=== PATIENT | female | born 1980 | race Caucasian/White ===

== ENCOUNTER 2017-05-15 09:22 | Emergency (ER) | payer MEDICAID ==
[2016-05-02 08:43] VITALS: Ht 167.6 cm; Wt 95.3 kg
[~2017-05-15] VITALS: Ht 167.6 cm; Wt 95.3 kg
[~2017-05-15 09:22] MED LIST: AA/A14DR7 OT; AMO500 PO; AZIT-18 PO; CODE118S5 PO; CYC10 PO; ESOM20CA31 PO; HYDR-4309 PO; KET10 PO; LOR5 PO; LOR5/325 PO; MULT1CAP59 PO; NAPR220C12 PO; NEOM10SO23 OT; NO MEDS; OMEP-125 PO; ONDA4TAB PO; TRA50 PO; [UNRECOGNIZED DRUG - OTHER]; [UNRECOGNIZED DRUG - OTHER] INFIL
--- NOTE | 2017-05-15 09:34 | ER Report ---
History and Physical Time Seen By MD: 09:32 HPI/ROS CHIEF COMPLAINT: cough HISTORY OF PRESENT ILLNESS: Patient is 37-year-old female who presents to department approximately 24 hours after developing flulike symptoms including headache bodyaches fatigue scratchy sore throat. And subjective fevers she is also having a nonproductive cough and complaint of chest discomfort and tightness with cough. Patient has no history of asthma or COPD. She has no other significant contributory past medical history. REVIEW OF SYSTEMS: Constitutional: Subjective fevers no chills Eyes: No discharge. ENT: Sore throat Cardiovascular: Chest wall pain no palpitations Respiratory: Dry cough Gastrointestinal: No abdominal pain, no vomiting. Genitourinary: No hematuria. Musculoskeletal: No back pain. Skin: No rashes. Neurological: Generalized headache Allergies: Coded Allergies: Penicillins (Verified Allergy, Severe, UNKNOWN, 06/03/16) Home Meds Discontinued Reported Medications Multivitamin (MULTIVITAMINS) 1 Each Capsule, 1 EACH PO DAILY, CAPSULE 08/15/16 Discontinued Scripts Hydrocodone Bit/Acetaminophen (HYDROCODON-ACETAMINOPHEN 5-325) 1 Each Tablet, 1 EACH PO Q4-6H Y for PAIN, #30 TAB Prov:MAURICIO GONZALEZ MD 09/03/16 Ketorolac Tromethamine (KETOROLAC TROMETHAMINE) 10 Mg Tab, 10 MG PO Q6H, #20 TAB Prov:MAURICIO GONZALEZ MD 09/03/16 Past Medical/Surgical History No significant past medical history, past surgical history for hysterectomy and cholecystectomy. Hx Smoking: Yes (1 PPD) Smoking Status: Current: Every Day Smoker Exposure to Second Hand Smoke?: Yes Hx Substance Use Disorder: No Hx Alcohol Use: No Constitutional Vital Sign - Last 24 Hours 05/15/17 05/15/17 05/15/17 05/15/17 09:28 09:29 09:37 09:45 Temp 98.1 Pulse 82 72 73 Resp 24 18 B/P (MAP) 127/90 127/90 (102) Pulse Ox 95 96 O2 Delivery Room Air 05/15/17 05/15/17 05/15/17 05/15/17 09:45 09:50 09:52 10:00 Pulse 67 73 Resp 18 B/P (MAP) 112/87 (95) Pulse Ox 94 94 O2 Delivery Room Air 2/1/18 2/1/18 10:22 10:30 Pulse 71 B/P (MAP) 99/53 (68) Pulse Ox 96 Physical Exam General/Constitutional: Patient is awake, alert, nontoxic and in no acute respiratory distress. Head: Normocephalic and atraumatic. Eyes: Conjunctival clear, Pupils are equal and reactive to light. Extraocular muscles are intact and symmetrical. Sclera are clear and anicteric. Ears:External canals are clear. Tympanic membranes are clear with normal landmarks and light reflex. Nares: No rhinorrhea or bleeding. Turbinates are pink and moist. Oropharyngeal: Mucous membranes are moist. There is no pharyngeal erythema or exudate. Neck: Supple, no adenopathy. Cardiovascular: Heart is regular rate and rhythm without audible murmurs, rubs or gallops. Pulmonary: Lungs are noted for diffuse wheeze with cough. No consolidation or rhonchi noted Abdomen: Soft, nontender, no guarding or peritoneal signs. Extremities: No gross deformities, No peripheral cyanosis. Able to move all 4 extremities. Neuro: Alert and oriented X3, Skin: No rashes, skin is warm dry and well perfused. Medical Decision Making Data Points Laboratory Hematology Test 05/15/17 09:37 Influenza Virus Type A (PCR) Negative (NEGATIVE) Influenza Virus Type B (PCR) Negative (NEGATIVE) Chemistry Test 05/15/17 09:37 Influenza Virus Type A (PCR) Negative (NEGATIVE) Influenza Virus Type B (PCR) Negative (NEGATIVE) EKG/Imaging Imaging FACILITY: [facility] PATIENT NAME: Queenie Chase : 1980 MR: [id number] V: [id number] EXAM DATE: ORDERING PHYSICIAN: SRINATH DEAN TECHNOLOGIST: Location: [facility] Patient: Queenie Chase : 1980 Visit/Account:[id number] Date of Sevice: 05/15/2017 Exam type: CHEST PA AND LAT History: cough Comparison: January 17, 2017. Findings: The lungs are free of acute effusions, infiltrates or edema. Cardiac silhouette is normal in size. The trachea is midline. Visualized bones are grossly unremarkable. IMPRESSION: 1. No acute cardiopulmonary process seen Report Dictated By: Karolyn Kern MD at 05/15/2017 10:43 AM Report E-Signed By: Karolyn Kern MD at 05/15/2017 10:46 AM WSN:TA ED Course/Re-evaluation ED Course 05/15/2017 9:57:38 am plan at this time will be to swab for influenza we'll also obtain a chest x-ray given a DuoNeb treatment and ibuprofen. 05/15/2017 11:11:56 am influenza screen is negative however clinically I believe the patient does have the virus. The test does lack sensitivity so it is possible that it is a false negative. The patient's symptoms very concerning for influenza and she is within the window of treatment of Tamiflu. Was going to the patient. She agrees with treatment. I will also prescribe Mucinex for cough will also write a work note for the next 3 days Decision to Disposition Date: May 15, 2017 Decision to Disposition Time: 11:09 Depart Departure Latest Vital Signs Vital Signs Date Time Temp Pulse Resp B/P (MAP) Pulse Ox O2 Delivery O2 Flow Rate FiO2 05/15/17 10:30 99/53 (68) 05/15/17 10:22 71 96 05/15/17 09:50 18 05/15/17 09:45 Room Air 05/15/17 09:28 98.1 Impression: Primary Impression: Influenza Condition: Improved Disposition: HOME OR SELF-CARE Referrals: VEDA LINDQUIST (PCP) New Scripts Guaifenesin/Pseudoephedrne Hcl (MUCINEX D ER TABLET) 1 Each Tab.er.12h 1 EACH PO Q12H for cough, #20 TAB 0 Refills Prov: SRINATH DEAN MD 05/15/17 Oseltamivir Phosphate (TAMIFLU) 75 Mg Cap 75 MG PO BID, #10 CAP 0 Refills Prov: SRINATH DEAN MD 05/15/17 Departure Forms: ER Transition Record, Medications Reconciliation, Off Work/ School Form, School or Work Release?: Work Number of days to be released: 3 Patient Portal Information Patient Instructions: Influenza (DC) SRINATH DEAN MD May 15, 2017 09:33
[2017-05-15] MEDS ORDERED: ALBUTEROL/IPRATROPIUM 3 ML NEB NEB ONE (09:40)
[2017-05-15] MEDS ORDERED: IBUPROFEN 800 MG TAB PO ONE (09:40)
--- NOTE | 2017-05-15 10:51 | RADIOLOGY IMAGING REPORT ---
FACILITY: [facility] PATIENT NAME: Queenie Chase : 1980 MR: [id number] V: [id number] EXAM DATE: ORDERING PHYSICIAN: SRINATH DEAN TECHNOLOGIST: Location: [facility] [place] Patient: Queenie Chase : 1980 Visit/Account:[id number] Date of Sevice: 05/15/2017 Exam type: CHEST PA AND LAT History: cough Comparison: January 17, 2017. Findings: The lungs are free of acute effusions, infiltrates or edema. Cardiac silhouette is normal in size. The trachea is midline. Visualized bones are grossly unremarkable. IMPRESSION: 1. No acute cardiopulmonary process seen Report Dictated By: Karolyn Kern MD at 05/15/2017 10:43 AM Report E-Signed By: Karolyn Kern MD at 05/15/2017 10:46 AM WSN:[id number]
[2017-05-15] MEDS ORDERED: ALBUTEROL SULFATE 90 MCG/ACT 8.5 GM HNH INH ONE (11:10)
[2017-05-15] MEDS ORDERED: GUAI-545 PO (11:12)
[2017-05-15] MEDS ORDERED: OSE75 PO (11:12)
[2017-05-15 11:20] VITALS: BP 112/93
== END 2017-05-15 11:15 | disposition home or self-care (01) ==
LOC: ER 09:36
DX: J11.1 Influenza due to unidentified influenza virus with other respiratory manifestations (principal)
CPT/HCPCS: 71046; 87502; 94640; 99283; J7620

== ENCOUNTER → 2017-10-08 | Outpatient (CLI) | payer MEDICAID ==
[2016-05-02 08:43] VITALS: BMI 33.4
[~2017-10-08] MED LIST changes: +GUAI-545 PO; +ONDA4TAB97 PO; +OSE75 PO; +OXYC-865 PO
--- NOTE | 2017-10-09 11:56 | RADIOLOGY IMAGING REPORT ---
FACILITY: [facility] [place] PATIENT NAME: ELIDIA OLIVER : [id number] MR: [id number] V: [id number] EXAM DATE: [id number] ORDERING PHYSICIAN: VEDA LINDQUIST TECHNOLOGIST: Donald Parham RDMS, [facility] PROCEDURE:US LEFT BREAST COMPLETE COMPARISON:Prior breast MR 01/01/17, Left breast Ultrasound 12/25/16, Prior diagnostic mammogram 12/25/16. The patient also complains of Left breast pain in the upper portion of the Left breast. INDICATIONS:6 mo f/u FINDINGS: The previously noted ovoid hypoechoic nodular area in the 3 o'clock position of the Left breast 4cm from the nipple is no longer seen. No sonographic abnormality of the Left breast was demonstrated. Clinical follow-up recommended for patient's Left breast pain. DIAGNOSTIC CATEGORY 1--NEGATIVE. RECOMMENDATIONS: CLINICAL EVALUATION. IMPRESSION: BIRADS 1: Negative. No significant abnormality of the Left breast is seen. The previously noted hypoechoic nodule in the 3 o'clock position is no longer identified. Clinical follow-up recommend for patient's Left breast pain. Dictated by: Karolyn Kern M.D. on 10/08/2017 at 16:38 Transcribed by: KENDRA on 10/09/2017 at 9:06 Approved by: Karolyn Kern M.D. on 10/09/2017 at 11:55 [facility]
== END ==
LOC: MAMO 01:27
PROVIDERS: ATTEND Nurse Practitioner Family
DX: N64.4 Mastodynia (principal); Z85.41 Personal history of malignant neoplasm of cervix uteri; Z80.3 Family history of malignant neoplasm of breast

== ENCOUNTER 2017-10-10 09:10 | Emergency (ER) | payer MEDICAID ==
[2016-05-02 08:43] VITALS: Wt 95.3 kg
[~2017-10-10 09:10] MED LIST changes: -ONDA4TAB97 PO; -OXYC-865 PO
--- NOTE | 2017-10-10 09:14 | ER Report ---
History and Physical Time Seen By MD: 09:13 HPI/ROS CHIEF COMPLAINT: Headache and back pain HISTORY OF PRESENT ILLNESS: Patient is a 37-year-old female who states she's had 2 weeks of headache along with backache. She denies any dysuria. She states that the symptoms have been fairly persistent for the past 2 weeks but she started having vomiting of bile this morning which is what prompted her to come to the emergency department. She denies any fevers or chills. She denies chest pain or shortness of breath. She denies any abdominal pain but does report some nausea and vomiting. She denies any diarrhea. Patient had her gallbladder removed as well as a total hysterectomy. She is recently being followed for a "lump" in her left breast which was uncomfortable. She had an ultrasound as a follow-up which was unremarkable and yesterday she was here for a mammography, she however was not seen for this complaint at that time. REVIEW OF SYSTEMS: Constitutional: No fever, no chills. Eyes: No discharge. ENT: No sore throat. Cardiovascular: No chest pain, no palpitations. Respiratory: No cough, no shortness of breath. Gastrointestinal: No abdominal pain, no vomiting. Genitourinary: No hematuria. Musculoskeletal: Back pain, Skin: No rashes. Neurological: Headache Allergies: Coded Allergies: Penicillins (Verified Allergy, Severe, UNKNOWN, 10/10/17) Home Meds Discontinued Scripts Guaifenesin/Pseudoephedrne Hcl (MUCINEX D ER TABLET) 1 Each Tab.er.12h, 1 EACH PO Q12H for cough, #20 TAB 0 Refills Prov:SRINATH DEAN MD 05/15/17 Oseltamivir Phosphate (TAMIFLU) 75 Mg Cap, 75 MG PO BID, #10 CAP 0 Refills Prov:SRINATH DEAN MD 05/15/17 Past Medical/Surgical History No chronic medical problems Hx Smoking: Yes (1 PPD) Smoking Status: Current: Every Day Smoker Exposure to Second Hand Smoke?: Yes Hx Substance Use Disorder: No Hx Alcohol Use: No Constitutional Vital Sign - Last 24 Hours 10/10/17 10/10/17 10/10/17 10/10/17 09:16 09:17 09:25 09:30 Temp 97.9 Pulse 70 59 Resp 18 B/P (MAP) 132/86 132/88 (103) 112/72 (85) Pulse Ox 97 97 O2 Delivery Room Air 10/10/17 10/10/17 10/10/17 10/10/17 09:40 09:45 09:55 10:00 Pulse 62 ??? B/P (MAP) 117/86 (96) ???/??? (1665) Pulse Ox 97 10/10/17 10/10/17 10:10 10:15 Pulse ??? B/P (MAP) 114/76 (89) Physical Exam General Appearance: The patient is alert, has no immediate need for airway protection and no signs of toxicity. Eyes: Pupils equal and round no pallor or injection. ENT, Mouth: Oropharynx shows no erythema aches membranes are dry; TMs and canals are clear bilaterally. Neck is negative for Kernig or Brudzinski sign Respiratory: There are no retractions, lungs are clear to auscultation. Cardiovascular: Regular rate and rhythm. [ ] Gastrointestinal: Abdomen is soft and non tender, no masses, bowel sounds normal. Neurological: GCS 15. Normal speech pattern normal gross motor and sensory exam Skin: Warm and dry, no rashes. Musculoskeletal: Extremities are nontender, nonswollen and have full range of motion. Medical Decision Making Data Points Result Diagram: 10/10/1731 10/10/1731 Laboratory Hematology Test 10/10/17 09:19 10/10/17 09:31 Urine Color Straw Urine Clarity Clear Urine pH 7.0 pH (4.8-9.5) Urine Specific Barnett 1.005 Urine Protein Negative mg/dL (NEGATIVE) Urine Glucose (UA) Negative mg/dL (NEGATIVE) Urine Ketones Negative mg/dL (NEGATIVE) Urine Blood Negative (NEGATIVE) Urine Nitrite Negative (NEGATIVE) Urine Bilirubin Negative (NEGATIVE) Urine Urobilinogen Negative mg/dL (0.2-1.9) Urine Leukocyte Esterase Negative (NEGATIVE) Urine RBC <1 /HPF (0-2/HPF) Urine WBC <1 /HPF (0-5/HPF) Urine Squamous Epithelial Cells None /LPF (</=FEW) Urine Bacteria Negative /HPF (NONE-FEW) Urine Mucus None /HPF (NONE-FEW) Red Blood Count 4.57 M/uL (4.17-5.56) Mean Corpuscular Volume 88.7 fL (80.0-96.0) Mean Corpuscular Hemoglobin 31.0 pg (26.0-33.0) Mean Corpuscular Hemoglobin Concent 34.9 g/dL (32.0-36.0) Red Cell Distribution Width 12.8 % (11.5-14.5) Mean Platelet Volume 9.4 fL (7.2-11.1) Neutrophils (%) (Auto) 57.1 % (39.4-72.5) Lymphocytes (%) (Auto) 33.6 % (17.6-49.6) Monocytes (%) (Auto) 7.3 % (4.1-12.4) Eosinophils (%) (Auto) 0.9 % (0.4-6.7) Basophils (%) (Auto) 1.1 % (0.3-1.4) Nucleated RBC Relative Count (auto) 0.2 /100WBC Neutrophils # (Auto) 4.9 K/uL (2.0-7.4) Lymphocytes # (Auto) 2.9 K/uL (1.3-3.6) Monocytes # (Auto) 0.6 K/uL (0.3-1.0) Eosinophils # (Auto) 0.1 K/uL (0.0-0.5) Basophils # (Auto) 0.1 K/uL (0.0-0.1) Nucleated RBC Absolute Count (auto) 0.01 K/uL Sodium Level 142 mmol/L (137-145) Potassium Level 3.6 mmol/L (3.5-5.0) Chloride Level 105 mmol/L (98-107) Carbon Dioxide Level 28 mmol/L (22-31) Blood Urea Nitrogen 13 mg/dl (7-18) Creatinine 0.70 mg/dl (0.52-1.04) Glomerular Filtration Rate Calc > 60.0 Random Glucose 100 mg/dl (75-110) Calcium Level 8.7 mg/dl (8.4-10.2) Total Bilirubin 0.4 mg/dl (0.2-1.3) Aspartate Amino Transf (AST/SGOT) 22 U/L (0-35) Alanine Aminotransferase (ALT/SGPT) 26 U/L (0-56) Alkaline Phosphatase 50 U/L (0-126) Total Protein 6.6 g/dl (6.3-8.2) Albumin 3.7 g/dl (3.5-5.0) Lipase 45 U/L (23-300) Chemistry Test 10/10/17 09:19 10/10/17 09:31 Urine Color Straw Urine Clarity Clear Urine pH 7.0 pH (4.8-9.5) Urine Specific Barnett 1.005 Urine Protein Negative mg/dL (NEGATIVE) Urine Glucose (UA) Negative mg/dL (NEGATIVE) Urine Ketones Negative mg/dL (NEGATIVE) Urine Blood Negative (NEGATIVE) Urine Nitrite Negative (NEGATIVE) Urine Bilirubin Negative (NEGATIVE) Urine Urobilinogen Negative mg/dL (0.2-1.9) Urine Leukocyte Esterase Negative (NEGATIVE) Urine RBC <1 /HPF (0-2/HPF) Urine WBC <1 /HPF (0-5/HPF) Urine Squamous Epithelial Cells None /LPF (</=FEW) Urine Bacteria Negative /HPF (NONE-FEW) Urine Mucus None /HPF (NONE-FEW) White Blood Count 8.6 k/uL (4.5-11.0) Red Blood Count 4.57 M/uL (4.17-5.56) Hemoglobin 14.1 g/dL (12.0-16.0) Hematocrit 40.5 % (34.0-47.0) Mean Corpuscular Volume 88.7 fL (80.0-96.0) Mean Corpuscular Hemoglobin 31.0 pg (26.0-33.0) Mean Corpuscular Hemoglobin Concent 34.9 g/dL (32.0-36.0) Red Cell Distribution Width 12.8 % (11.5-14.5) Platelet Count 248 K/uL (150-450) Mean Platelet Volume 9.4 fL (7.2-11.1) Neutrophils (%) (Auto) 57.1 % (39.4-72.5) Lymphocytes (%) (Auto) 33.6 % (17.6-49.6) Monocytes (%) (Auto) 7.3 % (4.1-12.4) Eosinophils (%) (Auto) 0.9 % (0.4-6.7) Basophils (%) (Auto) 1.1 % (0.3-1.4) Nucleated RBC Relative Count (auto) 0.2 /100WBC Neutrophils # (Auto) 4.9 K/uL (2.0-7.4) Lymphocytes # (Auto) 2.9 K/uL (1.3-3.6) Monocytes # (Auto) 0.6 K/uL (0.3-1.0) Eosinophils # (Auto) 0.1 K/uL (0.0-0.5) Basophils # (Auto) 0.1 K/uL (0.0-0.1) Nucleated RBC Absolute Count (auto) 0.01 K/uL Glomerular Filtration Rate Calc > 60.0 Calcium Level 8.7 mg/dl (8.4-10.2) Total Bilirubin 0.4 mg/dl (0.2-1.3) Aspartate Amino Transf (AST/SGOT) 22 U/L (0-35) Alanine Aminotransferase (ALT/SGPT) 26 U/L (0-56) Alkaline Phosphatase 50 U/L (0-126) Total Protein 6.6 g/dl (6.3-8.2) Albumin 3.7 g/dl (3.5-5.0) Lipase 45 U/L (23-300) Urinalysis Test 10/10/17 09:19 Urine Color Straw Urine Clarity Clear Urine pH 7.0 pH (4.8-9.5) Urine Specific Barnett 1.005 Urine Protein Negative mg/dL (NEGATIVE) Urine Glucose (UA) Negative mg/dL (NEGATIVE) Urine Ketones Negative mg/dL (NEGATIVE) Urine Blood Negative (NEGATIVE) Urine Nitrite Negative (NEGATIVE) Urine Bilirubin Negative (NEGATIVE) Urine Urobilinogen Negative mg/dL (0.2-1.9) Urine Leukocyte Esterase Negative (NEGATIVE) Urine RBC <1 /HPF (0-2/HPF) Urine WBC <1 /HPF (0-5/HPF) Urine Squamous Epithelial Cells None /LPF (</=FEW) Urine Bacteria Negative /HPF (NONE-FEW) Urine Mucus None /HPF (NONE-FEW) ED Course/Re-evaluation ED Course 10/10/2017 9:41:54 am plan at this time will be pain medication with Toradol along with antiemetics with Reglan and Benadryl. We'll check CBC CMP lipase urinalysis and urine culture. We'll also perform CT of the head. Patient is complaining of some back pain and some neck discomfort however she has no true meningeal signs on exam. Re-evaluation 10/10/2017 10:27:47 am patient feeling improved after Toradol, Reglan and Benadryl. Blood work and urinalysis are unremarkable. Awaiting results of CT scan. Decision to Disposition Date: Oct 10, 2017 Decision to Disposition Time: 10:40 Depart Departure Latest Vital Signs Vital Signs Date Time Temp Pulse Resp B/P (MAP) Pulse Ox O2 Delivery O2 Flow Rate FiO2 10/10/17 10:15 114/76 (89) 10/10/17 10:10 ??? 10/10/17 09:40 97 10/10/17 09:16 97.9 18 Room Air Impression: Primary Impression: Head ache Condition: Improved Disposition: HOME OR SELF-CARE Referrals: VEDA LINDQUIST (PCP) 2 Days if symptoms persist New Scripts Ondansetron Hcl (ZOFRAN) 4 Mg Tablet 4 MG PO Q8H for Nausea, #15 TAB 0 Refills Prov: SRINATH DEAN MD 10/10/17 Oxycodone Hcl/Acetaminophen (PERCOCET 5-325 MG TABLET) 1 Each Tablet 1 EACH PO Q4-6H for PAIN, #12 TAB 0 Refills Prov: SRINATH DEAN MD 10/10/17 Patient Instructions: Acute Headache (ED) Problem Qualifiers Primary Impression: Head ache Headache type: tension-type Headache chronicity pattern: acute headache Intractability: intractable Qualified Codes: G44.201 - Tension-type headache , unspecified, intractable SRINATH DEAN MD Oct 10, 2017 09:14
[2017-10-10] MEDS ORDERED: NS(*) 0.9% 1000 ML BAG 1,000 ML IV ONE (09:34)
[2017-10-10] MEDS ORDERED: diphenhydrAMINE 50 MG/ML VIAL IVP ONE (09:35)
[2017-10-10] MEDS ORDERED: KETOROLAC 30 MG/ML VIAL IVP ONE (09:35)
[2017-10-10] MEDS ORDERED: METOCLOPRAMIDE 10 MG/2 ML SDV IVP ONE (09:35)
[2017-10-10 09:45] LABS: PLATELET COUNT, AUTOMATED 248 K/uL (150-450)
--- NOTE | 2017-10-10 10:27 | RADIOLOGY IMAGING REPORT ---
FACILITY: [facility] - [place] PATIENT NAME: Queenie Chase : 1980 MR: [id number] V: [id number] EXAM DATE: ORDERING PHYSICIAN: SRINATH DEAN TECHNOLOGIST: Location: [facility] [place] Patient: Queenie Chase : 1980 Visit/Account:[id number] Date of Sevice: 10/10/2017 EXAMINATION: CT Head without intravenous contrast HISTORY: Headache. TECHNIQUE: Axial images were obtained from the skull base to the vertex without intravenous contrast . Sagittal and coronal reformatted images are also submitted. One of the following dose optimization techniques was utilized in the performance of this exam: Autom ated exposure control; adjustment of the mA and/or kV according to the patient's size; or use of an i terative reconstruction technique. Specific details can be referenced in the facility's radiology C T exam operational policy. COMPARISON: 05/01/2016. FINDINGS: Brain volume: Normal. Ventricles: Negative. Acute ischemic changes: None. Hemorrhage: None. Masses / edema: None. Leonard-white: Negative. White matter: Negative. Vessels: Negative. Extra-axial: Negative. Calvarium / skull base: Negative. Visualized sinuses / orbits: Negative. IMPRESSION: Normal noncontrast head CT. Report Dictated By: Rick Hudson MD at 10/10/2017 10:19 AM Report E-Signed By: Rick Hudson MD at 10/10/2017 10:22 AM WSN:[email or web address]
[2017-10-10] MEDS ORDERED: OXYC-865 PO (10:39)
[2017-10-10] MEDS ORDERED: ONDA4TAB97 PO (10:39)
[2017-10-10 10:43] VITALS: BP 124/79
== END 2017-10-10 10:43 | disposition home or self-care (01) ==
LOC: ER 09:21
DX: G44.201 Tension-type headache, unspecified, intractable (principal)
CPT/HCPCS: 70450; 81001; 83690; 85025; 87088; 96361; 96374; 96375; 99284; J1200; J1885; J2765; J7030; 82040; 82247; 82310; 82374; 82435; 82565; 82947; 84075; 84132; 84155; 84295; 84450; 84460; 84520

== ENCOUNTER → 2017-11-04 | Outpatient (CLI) | payer MEDICAID ==
[2016-05-02 08:43] VITALS: BMI 33.4
[~2017-11-04] MED LIST changes: +ONDA4TAB97 PO; +OXYC-865 PO
== END ==
LOC: LAB 15:51
PROVIDERS: ATTEND Nurse Practitioner Family
DX: M79.1 Myalgia (principal)
CPT/HCPCS: 36415; 85651; 86038; 86430

== ENCOUNTER 2018-01-22 10:51 | Emergency (ER) | payer MEDICAID ==
[2016-05-02 08:43] VITALS: Wt 93.0 kg
--- NOTE | 2018-01-22 11:05 | ER Report ---
History and Physical Time Seen By MD: 11:04 Hx. of Stated Complaint: PT C/O SUDDEN ONSET DIZZINESS, L ARM PAIN, NAUSEA. TEARFUL DURING TRIAGE. HPI/ROS CHIEF COMPLAINT: Chest pain and dizziness HISTORY OF PRESENT ILLNESS: This is a 37-year-old female who presents to the emergency department with her for dizziness, chest pain, leg pain. Patient states that just prior to arrival the patient was sitting in her truck and developed leg pains bilaterally, the majority the pain in the right, pain radiated up from her leg across her abdomen into her left shoulder and down her left arm, became anxious, became slightly lightheaded, patient states that she has never had anything like this before. Patient states that she sort of remembers them driving to the emergency department, "fell asleep for a few seconds". Slight nausea, no vomiting. No dyspnea. No fevers or chills. Patient is tearful, states that the pain in her legs has almost resolved however there is some residual pain in the right leg. She is actively moving the right leg. REVIEW OF SYSTEMS: Constitutional: No fever, no chills. Eyes: No discharge. ENT: No sore throat. Cardiovascular: As above. Respiratory: No cough, no shortness of breath. Gastrointestinal: No abdominal pain, no vomiting. Genitourinary: No hematuria. Musculoskeletal: As above. Skin: No rashes. Neurological: As above. Allergies: Coded Allergies: Penicillins (Verified Allergy, Severe, UNKNOWN, 10/10/17) Home Meds Active Scripts Promethazine Hcl (PROMETHAZINE HCL) 25 Mg Tablet, 25 MG PO Q8H, #10 TAB 0 Refills Prov:NAYELI FELDMAN [facility] 01/22/18 Meclizine Hcl (MECLIZINE HCL) 25 Mg Tablet, 25 MG PO BID, #10 TAB 0 Refills Prov:NAYELI FELDMAN [facility] 01/22/18 Ondansetron Hcl (ZOFRAN) 4 Mg Tablet, 4 MG PO Q8H for Nausea, #15 TAB 0 Refills Prov:SRINATH DEAN MD 10/10/17 Oxycodone Hcl/Acetaminophen (PERCOCET 5-325 MG TABLET) 1 Each Tablet, 1 EACH PO Q4-6H for PAIN, #12 TAB 0 Refills Prov:SRINATH DEAN MD 10/10/17 Past Medical/Surgical History Patient has a past medical and surgical history of meningitis, headaches, 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 Reviewed Nurses Notes: Yes Hx Smoking: Yes (1 PPD) Smoking Status: Current: Every Day Smoker Exposure to Second Hand Smoke?: Yes Hx Substance Use Disorder: No Hx Alcohol Use: No Constitutional Vital Sign - Last 24 Hours 01/22/18 01/22/18 01/22/18 01/22/18 10:51 10:58 11:06 11:10 Temp 98.1 Pulse ??? 73 ??? Resp 16 B/P (MAP) 126/89 126/89 (101) Pulse Ox 96 O2 Delivery Room Air 01/22/18 01/22/18 01/22/18 01/22/18 11:21 11:30 11:36 11:51 Pulse 71 66 59 Resp 26 20 9 B/P (MAP) 110/81 (91) Pulse Ox 95 96 97 01/22/18 01/22/18 01/22/18 01/22/18 12:00 12:06 12:21 12:30 Pulse 58 55 Resp 15 13 B/P (MAP) 117/73 (88) 115/69 (84) Pulse Ox 96 96 01/22/18 01/22/18 01/22/18 01/22/18 12:36 12:41 12:56 13:00 Pulse 66 75 78 Resp 23 34 9 B/P (MAP) 122/79 (93) Pulse Ox 97 95 91 Physical Exam General Appearance: The patient is alert, has no immediate need for airway protection and no signs of toxicity. Eyes: Pupils equal and round no pallor or injection. ENT, Mouth: Mucous membranes are moist. Respiratory: There are no retractions, lungs are clear to auscultation. Cardiovascular: Regular rate and rhythm, no murmurs, clicks or rubs. Gastrointestinal: Abdomen is soft and non tender, no masses, bowel sounds normal. Neurological: Alert and oriented 4. Moving all extremities. Following all commands. No focal neuro deficits. Skin: Warm and dry, no rashes. Musculoskeletal: Neck is supple non tender. Extremities are nontender, nonswollen and have full range of motion. [ ] DIFFERENTIAL DIAGNOSIS: After history and physical exam differential diagnosis was considered for chest pain including but not limited to myocardial ischemia, pericarditis pulmonary embolus, chest wall pain, pleural inflammation and pulmonary infectious causes. Medical Decision Making Data Points Result Diagram: 01/22/18 1155 01/22/18 1155 Laboratory Hematology Test 01/22/18 11:55 Red Blood Count 4.29 M/uL (4.17-5.56) Mean Corpuscular Volume 90.5 fL (80.0-96.0) Mean Corpuscular Hemoglobin 31.1 pg (26.0-33.0) Mean Corpuscular Hemoglobin Concent 34.4 g/dL (32.0-36.0) Red Cell Distribution Width 13.1 % (11.5-14.5) Mean Platelet Volume 9.4 fL (7.2-11.1) Neutrophils (%) (Auto) 46.5 % (39.4-72.5) Lymphocytes (%) (Auto) 44.8 % (17.6-49.6) Monocytes (%) (Auto) 6.8 % (4.1-12.4) Eosinophils (%) (Auto) 0.8 % (0.4-6.7) Basophils (%) (Auto) 1.1 % (0.3-1.4) Nucleated RBC Relative Count (auto) 0.0 /100WBC Neutrophils # (Auto) 3.1 K/uL (2.0-7.4) Lymphocytes # (Auto) 3.0 K/uL (1.3-3.6) Monocytes # (Auto) 0.4 K/uL (0.3-1.0) Eosinophils # (Auto) 0.1 K/uL (0.0-0.5) Basophils # (Auto) 0.1 K/uL (0.0-0.1) Nucleated RBC Absolute Count (auto) 0.00 K/uL Peripheral Blood Smear No Y/N Sodium Level 138 mmol/L (137-145) Potassium Level 3.6 mmol/L (3.5-5.0) Chloride Level 106 mmol/L (98-107) Carbon Dioxide Level 25 mmol/L (22-31) Blood Urea Nitrogen 12 mg/dl (7-18) Creatinine 0.70 mg/dl (0.52-1.04) Glomerular Filtration Rate Calc > 60.0 Random Glucose 98 mg/dl (75-110) Calcium Level 8.6 mg/dl (8.4-10.2) Total Bilirubin 0.4 mg/dl (0.2-1.3) Aspartate Amino Transf (AST/SGOT) 23 U/L (0-35) Alanine Aminotransferase (ALT/SGPT) 29 U/L (0-56) Alkaline Phosphatase 43 U/L (0-126) Troponin I < 0.012 ng/ml Total Protein 6.6 g/dl (6.3-8.2) Albumin 3.9 g/dl (3.5-5.0) Human Chorionic Gonadotropin, Qual Negative (NEGATIVE) Chemistry Test 01/22/18 11:55 White Blood Count 6.6 k/uL (4.5-11.0) Red Blood Count 4.29 M/uL (4.17-5.56) Hemoglobin 13.3 g/dL (12.0-16.0) Hematocrit 38.8 % (34.0-47.0) Mean Corpuscular Volume 90.5 fL (80.0-96.0) Mean Corpuscular Hemoglobin 31.1 pg (26.0-33.0) Mean Corpuscular Hemoglobin Concent 34.4 g/dL (32.0-36.0) Red Cell Distribution Width 13.1 % (11.5-14.5) Platelet Count 262 K/uL (150-450) Mean Platelet Volume 9.4 fL (7.2-11.1) Neutrophils (%) (Auto) 46.5 % (39.4-72.5) Lymphocytes (%) (Auto) 44.8 % (17.6-49.6) Monocytes (%) (Auto) 6.8 % (4.1-12.4) Eosinophils (%) (Auto) 0.8 % (0.4-6.7) Basophils (%) (Auto) 1.1 % (0.3-1.4) Nucleated RBC Relative Count (auto) 0.0 /100WBC Neutrophils # (Auto) 3.1 K/uL (2.0-7.4) Lymphocytes # (Auto) 3.0 K/uL (1.3-3.6) Monocytes # (Auto) 0.4 K/uL (0.3-1.0) Eosinophils # (Auto) 0.1 K/uL (0.0-0.5) Basophils # (Auto) 0.1 K/uL (0.0-0.1) Nucleated RBC Absolute Count (auto) 0.00 K/uL Peripheral Blood Smear No Y/N Glomerular Filtration Rate Calc > 60.0 Calcium Level 8.6 mg/dl (8.4-10.2) Total Bilirubin 0.4 mg/dl (0.2-1.3) Aspartate Amino Transf (AST/SGOT) 23 U/L (0-35) Alanine Aminotransferase (ALT/SGPT) 29 U/L (0-56) Alkaline Phosphatase 43 U/L (0-126) Troponin I < 0.012 ng/ml Total Protein 6.6 g/dl (6.3-8.2) Albumin 3.9 g/dl (3.5-5.0) Human Chorionic Gonadotropin, Qual Negative (NEGATIVE) EKG/Imaging EKG Interpretation 12 lead EKG: Time of EKG 11:00 Rhythm: Normal sinus rhythm, ventricular rate 76 bpm. [place]: QTC 481. QRS: normal ST segments: No ST elevation or depression identified. Imaging Location: [facility] Patient: Queenie Chase : 1980 Visit/Account:[id number] Date of Sevice: 01/22/2018 2 VIEWS CHEST INDICATION: Chest Pain COMPARISON: May 15, 2017 FINDINGS: Cardiomediastinal silhouette: Heart size within normal limits. Lungs: There is no focal infiltrate or lobar consolidation. There is no pneumothorax or pleural effusion. Bones and soft tissues: Vertebral body heights are preserved. Presumed cholecystectomy. IMPRESSION: 1. No acute cardiopulmonary process. Report Dictated By: Edgardo Alfonso MD at 01/22/2018 11:56 AM Report E-Signed By: Edgardo Alfonso MD at 01/22/2018 11:57 AM WSN:[id number] ED Course/Re-evaluation Clinical Indication for ER IV: Hydration, IV Access ED Course The patient was admitted to room. A history and physical obtained. Differential diagnoses were considered. An IV was started. A CBC, CMP, troponin were ob tained. A 1 L normal saline bolus was given. 4 mg IV Zofran. 025 mg by mouth meclizine. Patient states her symptoms have improved. I did review the chest x- ray with the patient which was negative. I reviewed the laboratory studies with the patient and her as well as negative EKG. I did tell the patient that this could be secondary to anxiety, patient agreed. I also encouraged patient to increase her water intake as she drinks a lot of sodas, tea and coffee during the day, I did tell her that this could be konstantin to some of the cramps that she is having in her legs. Patient expressed understanding the patient had no other questions or concerns at this time and was discharged home. I did send the patient home with a prescription for Phenergan for nausea as well as meclizine for intermittent dizziness. Patient did have a steady gait while in the emergency department. I also instructed the patient to follow-up with her primary care provider 1st thing next week. Decision to Disposition Date: Jan 22, 2018 Decision to Disposition Time: 13:03 Depart Departure Latest Vital Signs Vital Signs Date Time Temp Pulse Resp B/P (MAP) Pulse Ox O2 Delivery O2 Flow Rate FiO2 01/22/18 13:00 122/79 (93) 01/22/18 12:56 78 9 91 01/22/18 10:58 98.1 Room Air Impression: Primary Impression: Lightheaded Additional Impressions: Dizziness Chest pain of unknown etiology Condition: Improved Disposition: HOME OR SELF-CARE Referrals: VEDA LINDQUIST (PCP) 5 Days New Scripts Promethazine Hcl (PROMETHAZINE HCL) 25 Mg Tablet 25 MG PO Q8H, #10 TAB 0 Refills Prov: NAYELI FELDMANP- 01/22/18 Meclizine Hcl (MECLIZINE HCL) 25 Mg Tablet 25 MG PO BID, #10 TAB 0 Refills Prov: NAYELI FELDMANP- 01/22/18 Patient Instructions: Chest Pain (ED), Dizziness (ED), Lightheadedness (ED) Additional Instructions: I am uncertain what is causing your lightheadedness, dizziness or chest pain, however, your lab work, ekg and chest xray are all normal. Take the meclizine as needed for dizziness. Take the phenergan as needed for nausea and vomiting. Follow up with your primary care provider early next week for reevaluation. Drink plenty of water. Get plenty of rest. Return to the ED for any other concerns or worsening symptoms. Problem Qualifiers NAYELI FELDMAN [facility]-BC Jan 22, 2018 11:04
[2018-01-22] MEDS ORDERED: NS(*) 0.9% 1000 ML BAG 1,000 ML IV ONE (11:11)
[2018-01-22] MEDS ORDERED: ASPIRIN 81 MG CHEW PO ONE (11:15)
[2018-01-22] MEDS ORDERED: ONDANSETRON 4 MG/2 ML VIAL IVP ONE (11:20)
--- NOTE | 2018-01-22 11:21 | EKG ---
[place] [facility] [place] NAME: ELIDIA OLIVER : [id number] MR: [id number] V: [id number] EXAM DATE: ORDERING PHYSICIAN: NAYELI FELDMAN TECHNOLOGIST: AUTUMN Berrios Reason : CP Blood Pressure : / mmHG Vent. Rate : 076 BPM Atrial Rate : 076 BPM P-R Int : 132 ms QRS Dur : 090 ms QT Int : 428 ms P-R-T Axes : 068 064 043 degrees QTc Int : 481 ms Normal sinus rhythm with sinus arrhythmia Prolonged QT Abnormal ECG When compared with ECG of 08-JUL-2015 19:57, No significant change was found Confirmed by JORDI FARAH ([id number]) on 01/22/2018 6:08:24 PM Referred By: TOSHA Confirmed By:JORDI FARAH
--- NOTE | 2018-01-22 12:03 | RADIOLOGY IMAGING REPORT ---
FACILITY: [facility] [place] PATIENT NAME: Queenie Chase : 1980 MR: [id number] V: [id number] EXAM DATE: ORDERING PHYSICIAN: NAYELI FELDMAN TECHNOLOGIST: Location: [facility] [place] Patient: Queenie Chase : 1980 Visit/Account:[id number] Date of Sevice: 01/22/2018 2 VIEWS CHEST INDICATION: Chest Pain COMPARISON: May 15, 2017 FINDINGS: Cardiomediastinal silhouette: Heart size within normal limits. Lungs: There is no focal infiltrate or lobar consolidation. There is no pneumothorax or pleural effusion. Bones and soft tissues: Vertebral body heights are preserved. Presumed cholecystectomy. IMPRESSION: 1. No acute cardiopulmonary process. Report Dictated By: Edgardo Alfonso MD at 01/22/2018 11:56 AM Report E-Signed By: Edgardo Alfonso MD at 01/22/2018 11:57 AM WSN:[id number]
[2018-01-22 12:07] LABS: PLATELET COUNT, AUTOMATED 262 K/uL (150-450)
[2018-01-22] MEDS ORDERED: MECLIZINE HCL 25 MG TAB PO ONE (12:25)
[2018-01-22 13:00] VITALS: BP 122/79
[2018-01-22] MEDS ORDERED: MECL25TA9 PO (13:05)
[2018-01-22] MEDS ORDERED: PROM-110 PO (13:05)
== END 2018-01-22 13:34 | disposition home or self-care (01) ==
LOC: ER 11:08
DX: R07.89 Other chest pain (principal); R42 Dizziness and giddiness
CPT/HCPCS: 71046; 84484; 84703; 85025; 93005; 96361; 96374; 99284; J2405; J7030; J8597; 82040; 82247; 82310; 82374; 82435; 82565; 82947; 84075; 84132; 84155; 84295; 84450; 84460; 84520

== ENCOUNTER 2018-06-30 15:14 | Observation (INO) | payer MEDICAID ==
[~2018-06-30] VITALS: Ht 142.2 cm; Wt 95.3 kg
[~2018-06-30 15:14] MED LIST changes: -HYDR-4309 PO; +HYDR-653 PO; +MECL25TA9 PO; +PROM-110 PO
--- NOTE | 2018-06-30 15:19 | ER Report ---
History and Physical Time Seen By MD: 15:19 HPI/ROS CHIEF COMPLAINT: Fever, cough, headache HISTORY OF PRESENT ILLNESS: 38-year-old female patient presents to emergency room with complaint of fever, cough and headache. Patient states that she had symptoms starting yesterday at 5:30. She states she been doing fine all day yesterday until then. She states at that time she did have some body aches associated the. Patient states symptoms have persisted throughout the day and worsened. She states she did report primary care provider who evaluated her and referred her to the emergency room for meningeal signs. Patient states that she does have significant headache. She states that at her primary care provider she was tested for influenza and strep that was negative. Patient had a fever up to 103.4 at home today. REVIEW OF SYSTEMS: Respiratory: As noted above Cardiovascular: No chest pain, no palpitations. Gastrointestinal: No vomiting, no abdominal pain. Musculoskeletal: No back pain. Allergies: Coded Allergies: Penicillins (Verified Allergy, Severe, UNKNOWN, 06/30/18) Home Meds Discontinued Scripts Promethazine Hcl (PROMETHAZINE HCL) 25 Mg Tablet, 25 MG PO Q8H, #10 TAB 0 Refills Prov:NAYELI FELDMAN [facility] 01/22/18 Meclizine Hcl (MECLIZINE HCL) 25 Mg Tablet, 25 MG PO BID, #10 TAB 0 Refills Prov:NAYELI FELDMAN [facility] 01/22/18 Ondansetron Hcl (ZOFRAN) 4 Mg Tablet, 4 MG PO Q8H for Nausea, #15 TAB 0 Refills Prov:SRINATH DEAN MD 10/10/17 Oxycodone Hcl/Acetaminophen (PERCOCET 5-325 MG TABLET) 1 Each Tablet, 1 EACH PO Q4-6H for PAIN, #12 TAB 0 Refills Prov:SRINATH DEAN MD 10/10/17 Past Medical/Surgical History Patient has a past medical history of meningitis, migraines, stomach pain, bloody bowel movements, uterine cancer. Patient has a surgical history of hysterectomy. Reviewed Nurses Notes: Yes Hx Smoking: Yes (1 PPD) Smoking Status: Current: Every Day Smoker Exposure to Second Hand Smoke?: Yes Hx Substance Use Disorder: No Hx Alcohol Use: No Constitutional Vital Sign - Last 24 Hours 3/19/06/30/18 06/30/18 06/30/18 15:14 15:21 15:24 15:31 Temp 100.4 Pulse 95 95 Resp 18 B/P (MAP) 118/100 (106) 118/110 112/78 (89) Pulse Ox 93 94 O2 Delivery Room Air 06/30/18 06/30/18 06/30/18 06/30/18 15:44 16:14 16:30 16:35 Pulse 96 97 93 B/P (MAP) 128/63 (84) Pulse Ox 92 94 93 06/30/18 06/30/18 06/30/18 06/30/18 17:00 17:05 17:30 17:35 Pulse 97 94 B/P (MAP) 123/71 (88) 126/73 (90) Pulse Ox 92 90 06/30/18 06/30/18 06/30/18 06/30/18 17:40 17:45 17:45 18:00 Pulse 91 B/P (MAP) 122/68 (86) Pulse Ox 94 84 O2 Delivery Room Air O2 Flow Rate 2.0 06/30/18 06/30/18 06/30/18 06/30/18 18:10 18:15 18:30 18:45 Pulse 82 83 90 B/P (MAP) 118/73 (88) Pulse Ox 96 96 96 O2 Delivery Nasal Cannula O2 Flow Rate 2 06/30/18 06/30/18 06/30/18 06/30/18 19:00 19:15 19:20 19:30 Pulse 82 86 B/P (MAP) 118/70 (86) 102/54 (70) Pulse Ox 95 95 Physical Exam General Appearance: The patient is alert, has no immediate need for airway protection and no current signs of toxicity. Respiratory: Chest is non tender, lungs are clear to auscultation. Cardiac: regular rate and rhythm Gastrointestinal: Abdomen is soft and non tender, no masses, bowel sounds normal. Musculoskeletal: Neck: Neck is supple and tender to palpation. Brudzinski and Kernig signs were positive Extremities have full range of motion and are non tender. Skin: No rashes or lesions. DIFFERENTIAL DIAGNOSIS: After history and physical exam differential diagnosis was considered for meningitis, influenza, viral syndrome, sinusitis. Medical Decision Making Data Points Result Diagram: 06/30/18 1530 06/30/18 1530 Laboratory Hematology Test 06/30/18 15:30 06/30/18 16:04 06/30/18 17:20 Red Blood Count 4.60 M/uL (4.17-5.56) Mean Corpuscular Volume 88.5 fL (80.0-96.0) Mean Corpuscular Hemoglobin 30.5 pg (26.0-33.0) Mean Corpuscular Hemoglobin Concent 34.4 g/dL (32.0-36.0) Red Cell Distribution Width 13.0 % (11.5-14.5) Mean Platelet Volume 9.8 fL (7.2-11.1) Neutrophils (%) (Auto) 76.7 % (39.4-72.5) Lymphocytes (%) (Auto) 14.6 % (17.6-49.6) Monocytes (%) (Auto) 8.1 % (4.1-12.4) Eosinophils (%) (Auto) 0.0 % (0.4-6.7) Basophils (%) (Auto) 0.6 % (0.3-1.4) Nucleated RBC Relative Count (auto) 0.8 /100WBC Neutrophils # (Auto) 10.7 K/uL (2.0-7.4) Lymphocytes # (Auto) 2.0 K/uL (1.3-3.6) Monocytes # (Auto) 1.1 K/uL (0.3-1.0) Eosinophils # (Auto) 0.0 K/uL (0.0-0.5) Basophils # (Auto) 0.1 K/uL (0.0-0.1) Nucleated RBC Absolute Count (auto) 0.11 K/uL Sodium Level 133 mmol/L (137-145) Potassium Level 3.6 mmol/L (3.5-5.0) Chloride Level 102 mmol/L (98-107) Carbon Dioxide Level 25 mmol/L (22-31) Blood Urea Nitrogen 10 mg/dl (7-18) Creatinine 0.70 mg/dl (0.52-1.04) Glomerular Filtration Rate Calc > 60.0 Random Glucose 113 mg/dl (75-110) Lactate 0.9 mmol/L (0.7-2.1) Calcium Level 9.1 mg/dl (8.4-10.2) Total Bilirubin 0.5 mg/dl (0.2-1.3) Aspartate Amino Transf (AST/SGOT) 22 U/L (0-35) Alanine Aminotransferase (ALT/SGPT) 18 U/L (0-56) Alkaline Phosphatase 74 U/L (0-126) Total Protein 7.5 g/dl (6.3-8.2) Albumin 4.5 g/dl (3.5-5.0) Influenza Virus Type A (PCR) Negative (NEGATIVE) Influenza Virus Type B (PCR) Negative (NEGATIVE) Urine Color Straw Urine Clarity Clear Urine pH 6.0 pH (4.8-9.5) Urine Specific [place] 1.006 Urine Protein Negative mg/dL (NEGATIVE) Urine Glucose (UA) Negative mg/dL (NEGATIVE) Urine Ketones Negative mg/dL (NEGATIVE) Urine Blood Small (NEGATIVE) Urine Nitrite Negative (NEGATIVE) Urine Bilirubin Negative (NEGATIVE) Urine Urobilinogen Negative mg/dL (0.2-1.9) Urine Leukocyte Esterase Negative (NEGATIVE) Urine RBC <1 /HPF (0-2/HPF) Urine WBC <1 /HPF (0-5/HPF) Urine Squamous Epithelial Cells Few /LPF (</=FEW) Urine Bacteria Negative /HPF (NONE-FEW) Urine Mucus None /HPF (NONE-FEW) CSF Appearance Clear (CLEAR) CSF Color Colorless (COLORLESS) CSF WBC 1 /mm3 (0-5) CSF RBC 0 /mm3 CSF Glucose 61 mg/dl CSF Total Protein 36 mg/dl (15-50) Chemistry Test 06/30/18 15:30 06/30/18 16:04 06/30/18 17:20 White Blood Count 13.9 k/uL (4.5-11.0) Red Blood Count 4.60 M/uL (4.17-5.56) Hemoglobin 14.0 g/dL (12.0-16.0) Hematocrit 40.8 % (34.0-47.0) Mean Corpuscular Volume 88.5 fL (80.0-96.0) Mean Corpuscular Hemoglobin 30.5 pg (26.0-33.0) Mean Corpuscular Hemoglobin Concent 34.4 g/dL (32.0-36.0) Red Cell Distribution Width 13.0 % (11.5-14.5) Platelet Count 266 K/uL (150-450) Mean Platelet Volume 9.8 fL (7.2-11.1) Neutrophils (%) (Auto) 76.7 % (39.4-72.5) Lymphocytes (%) (Auto) 14.6 % (17.6-49.6) Monocytes (%) (Auto) 8.1 % (4.1-12.4) Eosinophils (%) (Auto) 0.0 % (0.4-6.7) Basophils (%) (Auto) 0.6 % (0.3-1.4) Nucleated RBC Relative Count (auto) 0.8 /100WBC Neutrophils # (Auto) 10.7 K/uL (2.0-7.4) Lymphocytes # (Auto) 2.0 K/uL (1.3-3.6) Monocytes # (Auto) 1.1 K/uL (0.3-1.0) Eosinophils # (Auto) 0.0 K/uL (0.0-0.5) Basophils # (Auto) 0.1 K/uL (0.0-0.1) Nucleated RBC Absolute Count (auto) 0.11 K/uL Glomerular Filtration Rate Calc > 60.0 Lactate 0.9 mmol/L (0.7-2.1) Calcium Level 9.1 mg/dl (8.4-10.2) Total Bilirubin 0.5 mg/dl (0.2-1.3) Aspartate Amino Transf (AST/SGOT) 22 U/L (0-35) Alanine Aminotransferase (ALT/SGPT) 18 U/L (0-56) Alkaline Phosphatase 74 U/L (0-126) Total Protein 7.5 g/dl (6.3-8.2) Albumin 4.5 g/dl (3.5-5.0) Influenza Virus Type A (PCR) Negative (NEGATIVE) Influenza Virus Type B (PCR) Negative (NEGATIVE) Urine Color Straw Urine Clarity Clear Urine pH 6.0 pH (4.8-9.5) Urine Specific [place] 1.006 Urine Protein Negative mg/dL (NEGATIVE) Urine Glucose (UA) Negative mg/dL (NEGATIVE) Urine Ketones Negative mg/dL (NEGATIVE) Urine Blood Small (NEGATIVE) Urine Nitrite Negative (NEGATIVE) Urine Bilirubin Negative (NEGATIVE) Urine Urobilinogen Negative mg/dL (0.2-1.9) Urine Leukocyte Esterase Negative (NEGATIVE) Urine RBC <1 /HPF (0-2/HPF) Urine WBC <1 /HPF (0-5/HPF) Urine Squamous Epithelial Cells Few /LPF (</=FEW) Urine Bacteria Negative /HPF (NONE-FEW) Urine Mucus None /HPF (NONE-FEW) CSF Appearance Clear (CLEAR) CSF Color Colorless (COLORLESS) CSF WBC 1 /mm3 (0-5) CSF RBC 0 /mm3 CSF Glucose 61 mg/dl CSF Total Protein 36 mg/dl (15-50) Urinalysis Test 06/30/18 16:04 Urine Color Straw Urine Clarity Clear Urine pH 6.0 pH (4.8-9.5) Urine Specific [place] 1.006 Urine Protein Negative mg/dL (NEGATIVE) Urine Glucose (UA) Negative mg/dL (NEGATIVE) Urine Ketones Negative mg/dL (NEGATIVE) Urine Blood Small (NEGATIVE) Urine Nitrite Negative (NEGATIVE) Urine Bilirubin Negative (NEGATIVE) Urine Urobilinogen Negative mg/dL (0.2-1.9) Urine Leukocyte Esterase Negative (NEGATIVE) Urine RBC <1 /HPF (0-2/HPF) Urine WBC <1 /HPF (0-5/HPF) Urine Squamous Epithelial Cells Few /LPF (</=FEW) Urine Bacteria Negative /HPF (NONE-FEW) Urine Mucus None /HPF (NONE-FEW) Microbiology Microbiology Date/Time Source Procedure Growth Status 06/30/18 17:20 Cerebrospinal Fluid Gram Stain - Final Resulted 06/30/18 17:20 Cerebrospinal Fluid CSF Culture Pending Resulted EKG/Imaging Imaging CT head without IV contrast HISTORY: Headache. COMPARISON: Brain MRI from 05/01/[address] head from 10/10/2017. TECHNIQUE: Contiguous axial images were obtained from the skull base to the vertex without intravenous contrast. Sagittal and coronal reformatted images are also submitted. One of the following dose optimization techniques was utilized in the performance of this exam: Automated exposure control; adjustment of the mA and/o r kV according to the patient's size; or use of an iterative reconstruction technique. Specific details can be referenced in the facility's radiology CT exam operational policy. FINDINGS: Brain volume: Normal. Ventricles: Normal. Acute ischemic changes: None. Hemorrhage: No acute intracranial hemorrhage. Masses/edema: None. Leonard-white: Negative. White matter: Normal. Vessels: Negative. Extra-axial: Negative. Calvarium/scalp: Negative. Skull base/visualized face: Negative. Visualized sinuses/orbits: There is moderate concentric mucosal thickening in both maxillary sinuses, left greater than right. This is significantly increased from previous exams. IMPRESSION: 1. No intracranial mass lesion or hemorrhage. No CT evidence of acute infarct. 2. Moderate inflammation of the bilateral maxillary sinuses, new from prior exams. This could be acute or chronic. Report Dictated By: Eun Fletcher MD at 06/30/2018 3:55 PM Report E-Signed By: Eun Fletcher MD at 06/30/2018 3:57 PM Exam type: CHEST PA LAT History: fever, cough Comparison: January 22, 2018. Findings: The lungs are free of acute effusions infiltrates or edema. Cardiac silhouette is normal in size. The trachea is in midline. IMPRESSION: 1. No acute cardiac pulmonary process is seen Report Dictated By: Karolyn Kern MD at 06/30/2018 4:31 PM Report E-Signed By: Karolyn Kern MD at 06/30/2018 4:32 PM ED Course/Re-evaluation ED Course Patient was admitted to an exam room, history of physical were obtained. Differential diagnoses were considered. On examination lungs are clear, heart regular, abdomen was soft and nontender. Patient did have tenderness to the neck. Patient had positive Brudzinski and Kernig sign. An IV was started, CBC, CMP, urinalysis, influenza screen were done. Patient did have a slightly elevated white count 13,000 with a left shift. CT scan of the head was done and chest x-ray. Chest x-ray showed no acute cardiopulmonary processes. The CT scan of the head showed acute sinusitis. Due to the positive Kernig and Brudzinski sign I felt that it was imperative to do a lumbar puncture to check for possible meningitis. The fluid on the tap appeared clear. There was sent to the lab. There are no red blood cells and one white blood cell noted. I discussed the case with Dr. Proctor, hospitalist, who agreed to accept the patient for admission. He requested that an HSV screen be added onto her CSF. That was done prior to admission. CSF cultures as well as blood cultures were obtained. Patient did receive a dose of Rocephin 2 g here in the emergency room. Procedure: Lumbar puncture. Indication: Headache. After verbal informed consent from patient explaining the risks including infection, bleeding, and neurologic damage, a lumbar puncture was performed after the patient was prepped and draped in the usual fashion. The back was anesthetized with 1% lidocaine. Approximately 4 cc of clear fluid was obtained. Opening pressure was not obtained. There were no complications. The procedure was performed by myself under the direction of Dr. Bob. Decision to Disposition Date: Jun 30, 2018 Decision to Disposition Time: 19:21 Depart Departure Latest Vital Signs Vital Signs Date Time Temp Pulse Resp B/P (MAP) Pulse Ox O2 Delivery O2 Flow Rate FiO2 06/30/18 19:30 102/54 (70) 06/30/18 19:20 86 95 06/30/18 18:10 Nasal Cannula 2 06/30/18 15:24 100.4 18 Impression: Primary Impression: Viral meningitis Additional Impression: Acute bacterial sinusitis Condition: Condition Unchanged Disposition: Admitted from ER Referrals: VEDA LINDQUIST (PCP) New Scripts No Active Prescriptions or Reported Meds Problem Qualifiers ROHINI SMITH Jun 30, 2018 15:19
[2018-06-30] MEDS ORDERED: NS(*) 0.9% 1000 ML BAG 1,000 ML IV ONE (15:50)
[2018-06-30 15:58] LABS: PLATELET COUNT, AUTOMATED 266 K/uL (150-450)
--- NOTE | 2018-06-30 16:26 | RADIOLOGY IMAGING REPORT ---
FACILITY: [facility] - [place] PATIENT NAME: Queenie Chase : 1980 MR: [id number] V: [id number] EXAM DATE: ORDERING PHYSICIAN: ROHINI SMITH TECHNOLOGIST: Location: [facility] - [place] Patient: Queenie Chase : 1980 Visit/Account:[id number] Date of Sevice: 06/30/2018 EXAMINATION: CT head without IV contrast HISTORY: Headache. COMPARISON: Brain MRI from 05/01/[address] head from 10/10/2017. TECHNIQUE: Contiguous axial images were obtained from the skull base to the vertex without intraven ous contrast. Sagittal and coronal reformatted images are also submitted. One of the following dose optimization techniques was utilized in the performance of this exam: Autom ated exposure control; adjustment of the mA and/or kV according to the patient's size; or use of an i terative reconstruction technique. Specific details can be referenced in the facility's radiology C T exam operational policy. FINDINGS: Brain volume: Normal. Ventricles: Normal. Acute ischemic changes: None. Hemorrhage: No acute intracranial hemorrhage. Masses/edema: None. Leonard-white: Negative. White matter: Normal. Vessels: Negative. Extra-axial: Negative. Calvarium/scalp: Negative. Skull base/visualized face: Negative. Visualized sinuses/orbits: There is moderate concentric mucosal thickening in both maxillary sinuses , left greater than right. This is significantly increased from previous exams. IMPRESSION: 1. No intracranial mass lesion or hemorrhage. No CT evidence of acute infarct. 2. Moderate inflammation of the bilateral maxillary sinuses, new from prior exams. This could be acut e or chronic. Report Dictated By: Eun Fletcher MD at 06/30/2018 3:55 PM Report E-Signed By: Eun Fletcher MD at 06/30/2018 3:57 PM WSN:[email or web address]
[2018-06-30] MEDS ORDERED: MORPHINE 4 MG/ML SDV IVP ONE ×2 (16:30→17:25)
--- NOTE | 2018-06-30 16:36 | RADIOLOGY IMAGING REPORT ---
FACILITY: [facility] - [place] PATIENT NAME: Queenie Chase : 1980 MR: [id number] V: [id number] EXAM DATE: ORDERING PHYSICIAN: ROHINI SMITH TECHNOLOGIST: Location: [facility] Patient: Queenie Chase : 1980 Visit/Account:[id number] Date of Sevice: 06/30/2018 Exam type: CHEST PA LAT History: fever, cough Comparison: January 22, 2018. Findings: The lungs are free of acute effusions infiltrates or edema. Cardiac silhouette is normal in size. T he trachea is in midline. IMPRESSION: 1. No acute cardiac pulmonary process is seen Report Dictated By: Karolyn Kern MD at 06/30/2018 4:31 PM Report E-Signed By: Karolyn Kern MD at 06/30/2018 4:32 PM WSN:[id number]
[2018-06-30] MEDS ORDERED: cefTRIAXone 2 GM VIAL IVP ONE (17:25)
[2018-06-30] MEDS ORDERED: ACETAMINOPHEN(*)1000 MG/100 ML 100 ML IVPB ONE (18:20)
[2018-06-30 20:00] VITALS: BP 112/73
[2018-06-30] MEDS: KETOROLAC 30 MG/ML VIAL IVP PRN (20:47)
[2018-06-30 23:00] VITALS: BP 108/67
[2018-06-30] MEDS ORDERED: METOCLOPRAMIDE 10 MG/2 ML SDV IVP ONE (23:10)
[2018-06-30] MEDS ORDERED: SUMAtriptan SUCC 6MG/0.5ML VL SUBQ ONE (23:10)
[2018-06-30] MEDS ORDERED: ACETAMINOPHEN(*)1000 MG/100 ML 100 ML IVPB PRN (23:10)
[2018-06-30] MEDS ORDERED: diphenhydrAMINE 50 MG/ML VIAL IVP ONE (23:10)
[2018-06-30] MEDS ORDERED: MOXIFLOX(*) 400MG/250ML PREMX 250 ML IVPB SCH (23:20)
[2018-06-30] MEDS ORDERED: FLUSH 10 ML SYR IVP PRN (23:30)
[2018-06-30] MEDS ORDERED: INFLUENZA VIRUS VAC 0.5ML SYR IM ONLY ONE (23:30)
[2018-06-30] MEDS ORDERED: NS(*) 0.9% 1000 ML BAG 1,000 ML IV PRN (23:30)
--- NOTE | 2018-06-30 23:30 | History & Physical ---
History of Present Illness Chief Complaint headache History of Present Illness 38F presented with concern of headache. PMHx significant for migraine MCCLELLAN, sinusitis. Reports 2-3 days worsening upper respiratory congestion. Seen in PCP office with complaint of MCCLELLAN and reportedly tested negative for strep and flu. Reports neck and shoulder stiffness and fever to 103 at home. In ER has mildly elevated WBC, low grade fever, photophobia. LP appears completely normal, CT head shows sinus thickening suspicious for sinusitis. History Problems: (1) Head ache Status: Acute Home Meds Discontinued Scripts Promethazine Hcl (PROMETHAZINE HCL) 25 Mg Tablet, 25 MG PO Q8H, #10 TAB 0 Refills Prov:NAYELI FELDMAN [employer] 01/22/18 Meclizine Hcl (MECLIZINE HCL) 25 Mg Tablet, 25 MG PO BID, #10 TAB 0 Refills Prov:NAYELI FELDMAN [employer] 01/22/18 Ondansetron Hcl (ZOFRAN) 4 Mg Tablet, 4 MG PO Q8H for Nausea, #15 TAB 0 Refills Prov:SRINATH DEAN MD 10/10/17 Oxycodone Hcl/Acetaminophen (PERCOCET 5-325 MG TABLET) 1 Each Tablet, 1 EACH PO Q4-6H for PAIN, #12 TAB 0 Refills Prov:SRINATH DEAN MD 10/10/17 Allergies: Coded Allergies: Penicillins (Verified Allergy, Severe, UNKNOWN, 06/30/18) Patient History: No pertinent family history BROTHER OR SISTER CHILD CHILD CHILD Unknown FATHER Hx Smoking: Yes (1/2 PPD) Smoking Status: Current: Every Day Smoker Exposure to Second Hand Smoke?: No Caffeine Intake: Coffee, Soda Caffeine/Cups Per Day: 6 PACK COKE/DAY, 2 CUPS COFFEE Hx Alcohol Use: No Hx Substance Use Disorder: No Review of Systems Eyes: Photophobia ENT: Sinus Congestion Respiratory: Cough Exam Vital Signs Vital Signs Date Time Temp Pulse Resp B/P (MAP) Pulse Ox O2 Delivery O2 Flow Rate FiO2 06/30/18 20:00 99.3 80 16 112/73 (86) 94 Nasal Cannula 1.0 General Appearance: Alert, Awake, No Acute Distress, Afebrile Neuro: No Gross deficits Eyes: PERRLA ENT: Normal Cardiovascular: Normal Rhythm & Peripheral Pulses Respiratory: No Respiratory Distress GI: Abd Soft and Non-Tender Extremities: Soft and Non Tender, Warm, Pulses, Perfused; No Edema Medical Decision Making Data Points Result Diagram: 06/30/18 1530 06/30/18 1530 Assessment and Plan Problems: (1) Head ache Status: Acute Assessment & Plan: Suspect worsening of migraine MCCLELLAN exacerbated by sinusitis. WIll attempt ketorolac, acetaminophen for pain control. May try migraine cocktail of metoclopramide, benadryl, possibly triptan. LP is completely normal and PE does not reveal meningeal signs. (2) Acute bacterial sinusitis Status: Acute Assessment & Plan: CT shows thickening of bilateral maxillary sinuses. Will begin moxifloxacin due to penicillin allergy, previously tried doxycycline. . Plan 5-7 days therapy. Venous Thromboembolism Antithrombotics Is Pt On Any Antithrombotics?: Yes Exam Sepsis Risk: Possible Sepsis Risk FLORI MAC DO Jun 30, 2018 23:30
[2018-07-01 01:30] VITALS: BP 105/55
[2018-07-01 03:40] VITALS: BP 106/52
[2018-07-01] MEDS: KETOROLAC 30 MG/ML VIAL IVP PRN ×3 (03:48→16:13)
[2018-07-01 05:45] LABS: PLATELET COUNT, AUTOMATED 223 K/uL (150-450)
[2018-07-01 07:16] VITALS: BP 121/67
[2018-07-01 08:56] VITALS: BMI 47.1
[2018-07-01] MEDS ORDERED: ENOXAPARIN 40 MG/0.4ML SYR SC SCH (09:00)
--- NOTE | 2018-07-01 10:50 | Hospitalist Progress Note ---
Subjective Progress Notes Subjective This patient was admitted for concerns of meningitis. She had no acute issues overnight. Patient Complains of: Cardiovascular: No: Chest Pain Respiratory: No: Shortness of Breath Physical Exam Vital Signs Date Time Temp Pulse Resp B/P (MAP) Pulse Ox O2 Delivery O2 Flow Rate FiO2 07/01/18 08:48 94 Room Air 07/01/18 07:16 98.7 78 18 121/67 (85) 07/01/18 03:40 1.0 Intake and Output 07/01/18 07:00 Intake Total 2750 ml Balance 2750 ml Intake Oral 1400 ml IV Total 1350 ml # Voids 4 Neuro: No Gross deficits Cardiovascular: Regular Rate and Rhythm Respiratory: Clear to Auscultation Result Diagram: 07/01/1852307/01/18523 Assessment and Plan Problems: (1) Head ache Status: Acute Assessment & Plan: She was treated with Toradol and Imitrex with good results. There was initially concern for meningitis, but her CSF analysis was normal. (2) Acute bacterial sinusitis Status: Acute Assessment & Plan: CT shows thickening of bilateral maxillary sinuses. She has been started on moxifloxacin. (3) Elevated liver enzymes Assessment & Plan: Her liver enzymes increased overnight. We will repeat levels later this afternoon. Exam Sepsis Risk: No Definite Risk JORDI FARAH DO Jul 01, 2018 10:50
[2018-07-01 11:01] VITALS: Ht 142.2 cm; Wt 95.3 kg
[2018-07-01 11:47] VITALS: BP 108/65
[2018-07-01] MEDS ORDERED: MAG HYD/AL HYD/SIMETH 30ML UDC PO ONE (14:15)
[2018-07-01 14:53] VITALS: BP 123/79
[2018-07-01] MEDS ORDERED: KET10 PO (16:07)
[2018-07-01] MEDS ORDERED: MOXI400T2 PO (16:07)
--- NOTE | 2018-07-01 16:09 | Hospitalist Depart ---
Discharge Summary Reason for Hosp/Final Diag: (1) Head ache Status: Acute Hospital Course & Plan: She was treated with Toradol and Imitrex with good results. There was initially concern for meningitis, but her CSF analysis was normal. (2) Acute bacterial sinusitis Status: Acute Hospital Course & Plan: CT shows thickening of bilateral maxillary sinuses. She has been started on moxifloxacin. (3) Elevated liver enzymes Hospital Course & Plan: Her liver enzymes increased overnight, but were improving prior to discharge. Departure Latest Vital Signs Vital Signs 07/01/18 07/01/18 03:40 14:53 Temp 98.5 Pulse 73 Resp 16 B/P (MAP) 123/79 (94) Pulse Ox 94 O2 Delivery Room Air O2 Flow Rate 1.0 Weight (Pounds): 210 Result Diagram: 07/01/18 0524 07/01/18 1528 Condition: Improved Discharge: Home, Self Care Discharge Instructions Home Meds Active Scripts Ketorolac Tromethamine (KETOROLAC TROMETHAMINE) 10 Mg Tab, 10 MG PO Q6H PRN for PAIN/HEADACHE, #10 TAB Prov:JORDI FARAH DO 07/01/18 Moxifloxacin HCl (Moxifloxacin HCl) 400 Mg Tablet, 1 TAB PO QDAY, #10 TAB Prov:JORDI FARAH DO 07/01/18 Discontinued Scripts Promethazine Hcl (PROMETHAZINE HCL) 25 Mg Tablet, 25 MG PO Q8H, #10 TAB 0 Refills Prov:NAYELI FELDMAN [facility] 01/22/18 Meclizine Hcl (MECLIZINE HCL) 25 Mg Tablet, 25 MG PO BID, #10 TAB 0 Refills Prov:NAYELI FELDMAN [facility] 01/22/18 Ondansetron Hcl (ZOFRAN) 4 Mg Tablet, 4 MG PO Q8H for Nausea, #15 TAB 0 Refills Prov:SRINATH DEAN MD 10/10/17 Oxycodone Hcl/Acetaminophen (PERCOCET 5-325 MG TABLET) 1 Each Tablet, 1 EACH PO Q4-6H for PAIN, #12 TAB 0 Refills Prov:SRINATH DEAN MD 10/10/17 Diet: Regular Activity: As Tolerated Venous Thromboembolism Antithrombotics Is Pt On Any Antithrombotics?: Yes JORDI FARAH DO Jul 01, 2018 16:09
[2018-07-01] MEDS ORDERED: MOXIFLOX(*) 400MG/250ML PREMX 250 ML IVPB SCH (23:30)
== END 2018-07-01 16:07 | disposition home or self-care (01) ==
LOC: ER 15:24 → MED 19:30 → INTOOBSV 19:30
PROVIDERS: ADMIT Internal Medicine; ATTEND Internal Medicine
DX: A87.9 Viral meningitis, unspecified (principal); J01.90 Acute sinusitis, unspecified; B96.89 Other specified bacterial agents as the cause of diseases classified elsewhere; R79.89 Other specified abnormal findings of blood chemistry; R51 Headache
CPT/HCPCS: 36415; 62270; 70450; 71046; 81001; 82945; 83605; 84157; 85025; 86308; 87040; 87070; 87205; 87502; 87529; 89050; 96361; 96365; 96372; 96375; 99285; G0378; J0131; J0696; J1200; J1650; J1885; J2270; J2280; J2765; J3030; J7030; 82040; 82247; 82310; 82374; 82435; 82565; 82947; 84075; 84132; 84155; 84295; 84450; 84460; 84520

== ENCOUNTER → 2018-07-08 | Outpatient (CLI) | payer MEDICAID ==
[2018-07-01 11:01] VITALS: BMI 47.1
[~2018-07-08] MED LIST changes: +MOXI400T2 PO
== END ==
LOC: LAB 09:56
PROVIDERS: ATTEND Nurse Practitioner Family
DX: R94.5 Abnormal results of liver function studies (principal)
CPT/HCPCS: 36415; 82040; 82247; 82310; 82374; 82435; 82565; 82947; 84075; 84132; 84155; 84295; 84450; 84460; 84520

== ENCOUNTER → 2018-08-04 | Outpatient (CLI) | payer MEDICAID ==
[2018-07-01 11:01] VITALS: BMI 47.1
== END ==
LOC: LAB 12:16
PROVIDERS: ATTEND Nurse Practitioner Family
DX: R94.5 Abnormal results of liver function studies (principal)
CPT/HCPCS: 36415; 82040; 82247; 82310; 82374; 82435; 82565; 82947; 84075; 84132; 84155; 84295; 84450; 84460; 84520

== ENCOUNTER → 2018-09-02 | Outpatient (REF) | payer MEDICAID ==
[2018-07-01 11:01] VITALS: BMI 47.1
[2018-09-02 11:33] LABS: PLATELET COUNT, AUTOMATED 293 K/uL (150-450)
== END ==
PROVIDERS: ATTEND Nurse Practitioner Family
DX: R10.9 Unspecified abdominal pain (principal)
CPT/HCPCS: 82040; 82150; 82247; 82274; 82310; 82374; 82435; 82565; 82947; 83630; 83690; 84075; 84132; 84155; 84295; 84450; 84460; 84520; 85025; 87045; 87177; 87324; 87449

== ENCOUNTER → 2018-09-11 | Outpatient (CLI) | payer MEDICAID ==
[2018-07-01 11:01] VITALS: BMI 47.1
--- NOTE | 2018-09-11 14:11 | RADIOLOGY IMAGING REPORT ---
FACILITY: [facility] - [place], [place] PATIENT NAME: Queenie Chase : 1980 MR: [id number] V: [id number] EXAM DATE: ORDERING PHYSICIAN: VEDA LINDQUIST TECHNOLOGIST: [facility] Patient: Queenie Chase : 1980 Visit/Account:[id number] Date of Sevice: 09/11/2018 LIVER HISTORY: Upper quadrant pain COMPARISON: Gallbladder ultrasound August 26, 2016 FINDINGS: Gallbladder: Surgically absent Liver: Negative. Common duct: Normal, 2.2 mm diameter. Pancreas: Partially obscured by bowel, visualized aspects unremarkable. Right kidney: Right kidney appears unremarkable measuring 11.5 cm in length Upper abdominal aorta and IVC: Patent. Ascites: None visualized. IMPRESSION: Postsurgical changes from a cholecystectomy otherwise unremarkable right upper quadrant ultrasound Report Dictated By: Karolyn Kern MD at 09/11/2018 2:04 PM Report E-Signed By: Karolyn Kern MD at 09/11/2018 2:05 PM WSN:[email or web address]
== END ==
LOC: US 02:06
PROVIDERS: ATTEND Nurse Practitioner Family
DX: R10.11 Right upper quadrant pain (principal); R19.7 Diarrhea, unspecified; Z90.49 Acquired absence of other specified parts of digestive tract
CPT/HCPCS: 76705